=== PATIENT | male | born 1985 | race Two or more races ===

== ENCOUNTER 2018-09-10 17:54 | Outpatient (CLI) | payer OTHER ==
--- NOTE | 2018-09-11 10:51 | MRI Report ---
Reason: DISPLACED FRACTURE OF MIDDLE PHALANX OF LEFT MIDDL Procedure Date: 09/10/2018 Accession Number: [id number] / [id number] Procedure: MRI - Hand LT W/O CPT Code: FULL RESULT: EXAM: LEFT HAND MRI WITHOUT CONTRAST EXAM DATE: 09/10/2018 06:49 PM. CLINICAL HISTORY: Displaced fracture of middle phalanx of left third digit. COMPARISON: None. TECHNIQUE: Multiplanar, multisequence T1-weighted and fluid-sensitive sequences of the hand without contrast. Other: None. FINDINGS: Bones: There is edema of the anterior margin of the base of the middle phalanx of the third digit. There are no other visible foci of marrow edema. There is a moderate-sized effusion of the proximal interphalangeal joint. Cartilage: The articular cartilage is unremarkable. Ligaments: There is increased T1 and T2 signal in the collateral ligaments of the third PIP joint, suggestive of grade 1 sprains. Tendons: The flexor and extensor tendons are unremarkable. Musculature: No edema or fatty atrophy. Other: There is mild subcutaneous edema surrounding the third PIP joint. IMPRESSION: 1. Contusion of the anterior aspect of the base of the middle phalanx of the third digit with grade 1 sprains of the collateral ligaments. The flexor and extensor tendons appear normal. [facility] MUSCULOSKELETAL RADIOLOGY SECTION
== END 2018-09-10 17:55 | disposition home or self-care (01) ==
LOC: DI 17:54
PROVIDERS: ATTEND Orthopaedic Surgery
DX: S62.623A Displaced fracture of middle phalanx of left middle finger, initial encounter for closed fracture (principal); S60.032A Contusion of left middle finger without damage to nail, initial encounter; S63.8X2A Sprain of other part of left wrist and hand, initial encounter